=== PATIENT | female | born 1940 | race Caucasian/White ===

== ENCOUNTER 2020-08-07 10:08 | Inpatient (IN) | payer MEDICARE, SELFPAY ==
[2020-08-07] VITALS (9 sets, daily range): BP systolic 133–153; BP diastolic 66–83; PULSE 90–106; RESP 16–28; TEMP 36.4–36.6; O2SAT 69–100; BMI 25.3
--- NOTE | ~2020-08-07 | XR_ITS ---
EXAMINATION: XR abdomen/kub 1V DATE: 08/11/2020 08:24 INDICATION: Nausea and vomiting. Abdominal tenderness. TECHNIQUE: A supine view of the abdomen on 2 radiographs was obtained. COMPARISON: None. FINDINGS: There are no dilated loops of bowel. There is a small volume of stool in the colon. There i s a total left hip arthroplasty. Calcifications in the pelvis are likely phleboliths, but distal uret eral stone cannot be excluded. IMPRESSION: 1. Normal bowel gas pattern. Reviewed, dictated and finalized at location A.
--- NOTE | ~2020-08-07 | CT_ITS ---
EXAMINATION: CT abdomen pelvis w con DATE: 08/11/2020 12:43 INDICATION: Nausea and vomiting. TECHNIQUE: Computed tomography (CT) of the abdomen and pelvis was performed with 100 mL Omnipaque 350 intravenous contrast. Automated exposure control and iterative reconstruction technique were employe d. The dose-length product was 419.45 mGy-cm. COMPARISON: None. FINDINGS: The visualized portions of the lung bases demonstrate mild atelectasis and scarring. There is mild bronchiectasis bilaterally. A calcified left lung nodule is consistent with old granulomatous disease. No pleural effusion. There is left atrial enlargement of the heart. There are coronary nasir ry calcifications. No pericardial effusion. There are cysts in the liver measuring up to 6 mm. There are changes of cholecystectomy. The spleen, pancreas, and adrenal glands are normal. There is cortica l thinning of the kidneys. There are cysts in the kidneys measuring up to 8 mm on the right. There ar e no dilated loops of bowel. The appendix is not visualized. There is a small sliding hiatal hernia. There are no pathologically enlarged lymph nodes. There are small calcified fibroids in the uterus. T here is no free intraperitoneal fluid. There is a total left hip arthroplasty. There is severe thorac olumbar spondylosis. IMPRESSION: 1. Small sliding hiatal hernia. Reviewed, dictated and finalized at location A.
--- NOTE | ~2020-08-07 | XR_ITS ---
EXAMINATION: XR chest 1V portable DATE: 08/11/2020 08:24 INDICATION: Shortness of breath. Cough. TECHNIQUE: A single frontal view of the chest was obtained. COMPARISON: Chest 2 views 08/07/2020 FINDINGS: The chest demonstrates clear lungs without pneumonia, pleural effusion, or pneumothorax. Th e heart size is normal. IMPRESSION: 1. No acute cardiopulmonary disease. Reviewed, dictated and finalized at location A.
--- NOTE | ~2020-08-07 | XR_ITS ---
EXAMINATION: XR chest 2V DATE: 08/07/2020 11:18 INDICATION: Cough and shortness of breath. TECHNIQUE: Frontal and lateral views of the chest were obtained. COMPARISON: None. FINDINGS: There are small pleural effusions. There is a diffuse interstitial pattern, consistent with mild pulmonary edema. No pneumothorax. Cardiomegaly is noted. There are surgical clips in left axill a. IMPRESSION: 1. Mild pulmonary edema. 2. Small pleural effusions. 3. Cardiomegaly. Reviewed, dictated and finalized at location B.
--- NOTE | 2020-08-07 10:59 | ECG_ITS ---
Measurements Intervals [place] Rate: 96 P: 46 AL: 163 QRS: -28 QRSD: 109 T: 64 QT: 409 QTc: 519 Interpretive Statements SINUS RHYTHM VOLTAGE CRITERIA FOR LVH BORDERLINE R WAVE PROGRESSION, ANTERIOR LEADS BORDERLINE ST-T WAVE ABNORMALITY- INF/LAT LEADS BASELINE WANDER- II, III, V1 BORDERLINE ECG Electronically Signed On 08-07-2020 11:09:54 CDT by Fan Merritt D.O.
[2020-08-07 11:20] LABS: Basophils Percent Auto 0.4 % (0.2-1.2); Eosinophils Absolute Auto 0.1 K/mm3 (0-0.3); Eosinophils Percent Auto 1.2 % (0-4.4); Hemoglobin 12.2 g/dL (12.0-15.0); Immature Granulocyte Absolute 0.04 K/mm3 (0.00-0.031); Immature Granulocyte Percent A 0.4 % (0-0.5); Lymphocytes Absolute Auto 1.35 K/mm3 (0.9-3.2); Lymphocytes Percent Auto 13.5 % (18.3-44.2); Mean Corpuscular HGB Conc 32.1 g/dl (32-36); Mean Corpuscular Hemoglobin 30.3 pg (26-34); Mean Corpuscular Volume 94.3 fl (80-100); Mean Platelet Volume 9.2 fl (7.4-10.4); Monocytes Absolute Auto 0.6 K/mm3 (0.1-0.6); Monocytes Percent Auto 6.2 % (2.6-8.5); Neutrophils Absolute Auto 7.8 K/mm3 (1.3-6.7); Neutrophils Percent Auto 78.3 % (45.5-73.1); Platelet Count Result 326 k/mm3 (150-375); Red Blood Count 4.03 M/mm3 (4.2-5.4); Red Cell Distribution Width 13.7 % (11.5-14.5)
--- NOTE | 2020-08-07 11:23 | PC.NURSE ---
Report given to Jennifer POND
[2020-08-07 11:28] LABS: Anion Gap 7 mmol/L (8-16); Blood Urea Nitrogen 24 mg/dL (7-17); Calcium 9.2 mg/dL (8.4-10.2); Carbon Dioxide 29 mmol/L (22-30); Chloride 108 mmol/L (98-107); Estimated CRCL calculation 30 ml/min; Estimated Glomerular Filt Rate 43; Glucose 96 mg/dL (65-105); Sodium 144 mmol/L (137-145)
[2020-08-07] MEDS: IPRATROPIUM BR 0.02% INH SOLN 0.5 MG/2.5 ML VIAL INHALATION (12:04)
[2020-08-07] MEDS: ALBUTEROL SULFATE NEB 2.5 MG/0.5 ML INH 5 MG INHALATION (12:04)
[2020-08-07 12:26] LABS: NT Pro B Type Natriuretic Pept 6630 PG/ML (5-100); Troponin I 0.026 ng/mL (0.000-0.034)
--- NOTE | 2020-08-07 14:15 | ED.SOB ---
HPI - SOB/Dyspnea General Chief Complaint: Shortness of Breath/Dyspnea Stated Complaint: cough Time Seen by Provider: 08/07/20 11:20 Source: patient Mode of arrival: ambulatory Limitations: no limitations History of Present Illness HPI Narrative: 80-year-old female Mostly pretty healthy except that she has bad osteoarthritis in her right knee and is supposed to get replaced in a couple of weeks Today complains of increasing shortness of breath for about 3 weeks, saying that it feels like she has asthma, which she has no history of She is primarily symptomatic at night or when she lays down, less so during the day or with activity She does not report any chest pain or tightness She has not had a fever She initially had no cough at all, now she coughs a little bit but does not really produce any sputum Related Data Home Medications Medication Instructions Recorded Confirmed albuterol sulfate 90 mcg/actuation 1 inh INHALATION Q4-6H PRN 05/30/20 06/10/20 breath activated powder inhaler benzonatate 100 mg capsule 100 mg PO BID PRN 05/30/20 06/10/20 calcium carbonate-vit A and D tablet PO 05/30/20 06/10/20 tablet donepezil 5 mg tablet 5 mg PO ONCE 05/30/20 06/10/20 gemfibrozil 600 mg tablet 600 mg PO DAILY 05/30/20 06/10/20 levothyroxine 50 mcg capsule 50 mcg PO DAILY 05/30/20 06/10/20 meclizine 25 mg tablet 25 mg PO BID 05/30/20 06/10/20 pantoprazole 40 mg tablet,delayed 40 mg PO QAM 05/30/20 06/10/20 release paroxetine HCl 20 mg tablet 20 mg PO DAILY 05/30/20 06/10/20 vits no.126-ferrous fum tablet PO 05/30/20 28 mg iron-folic acid 800 mcg tablet Allergies Allergy/AdvReac Type Severity Reaction Status Date / Time levofloxacin Allergy Unknown Unknown Verified 05/30/20 12:11 Quinolones Allergy Unknown Unknown Verified 05/30/20 12:11 Review of Systems Review of Systems: All systems reviewed & are unremarkable except as noted in HPI and below Constitutional: Constitutional: Reports no additional constitutional complaints, Denies chills, Denies fever(s) and Denies headache(s) Eyes: Eyes: Reports no additional eye complaints and Denies change in vision ENT: Denies headache(s) and Denies sore throat Cardiovascular: Cardiovascular: Denies chest pain and Denies dyspnea Respiratory: Respiratory: Reports cough and Reports dyspnea Gastrointestinal: Gastrointestinal: Denies abdominal pain, Denies diarrhea and Denies vomiting Genitourinary: Genitourinary: Denies urinary frequency and Denies dysuria Musculoskeletal: Musculoskeletal: Denies deformity, Denies arthralgias, Denies joint swelling and Denies numbness Integumentary/Breasts: Skin/Breast: Denies rash and Denies wounds Neurologic: Denies headache(s), Denies focal weakness and Denies numbness Psychiatric: Psychiatric: Reports no additional psychiatric complaints Endocrine: Endocrine: Reports no additional endocrine complaints Hematologic/Lymphatic: Hematologic/Lymphatic: Reports no additional hematologic/lymphatic complaints Allergic/Immunologic: Allergic/Immunologic: Reports no additional allergic/immunologic complaints [facility] Past Medical History Medical History (Updated 08/07/20 @ 14:26 by Johnathon Delatorre MD) Carpal tunnel syndrome Hodgkin lymphoma Osteopenia Surgical History Surgical History (Updated 06/19/20 @ 12:50 by Izabella Hoffman CMA) Status post cholecystectomy Status post hip replacement Stem cells transplant status Family History Family History Grandparent Family history of malignant neoplasm of breast, Onset Age: 91 Mother Patient's mother is Social History Social History Smoking status: Never smoker Second hand tobacco smoke exposure: No Alcohol intake: never Exam Const: General: cooperative, no acute distress and alert Orientation/consc
--- NOTE | 2020-08-07 16:00 | PM.IMHP ---
H&P: HPI History of Present Illness Date/Time: 08/07/20 16:00 Chief Complaint: Shortness of breath. Narrative: This is a 72-year-old female with history of non-Hodgkin lymphoma over 20 years ago, hypothyroidism, and hypertriglyceridemia who presented to the emergency department earlier today via private vehicle from home for evaluation of shortness of breath. She suffers from short-term memory loss and is a fair historian however some of the following history is obtained from her who is at bedside, with the patient's permission. It sounds like over the last couple of years she has become progressively more debilitated due to ongoing right knee pain and right foot drop. In turn she has become more deconditioned and she does get short of breath with exertion. Over the last 3 weeks she has been increasingly more short of breath on lesser and lesser exertion and also reports the development of a dry cough, wheezing, and orthopnea. In the emergency department she was found to have findings concerning for possible underlying congestive heart failure with an elevated proBNP and cardiomegaly with mild pulmonary edema and small pleural effusions noted on chest x-ray. With further questioning she does mention having an episode recently of discomfort in the right lower sternum but she is vague regarding that has a difficult time describing the discomfort. It was self-limiting and has not returned. She does not recall having issues with exertional chest pain and has no known history of heart disease. She denies fever, chills, sweats, cold and flu symptoms, exposure to those positive for COVID-19, pleuritic pain, palpitations, racing heart, nausea, vomiting, and significant lower extremity edema. Review of Systems Review of Systems: Narrative: Twelve systems were reviewed with pertinent positives and negatives as per HPI. She is taking donepezil for memory loss but has never been diagnosed with dementia. She defers a lot of my questions to her . No history of asthma or COPD. She finished her vaccine series for COVID-19 sometime in June 2020. She denies dysphagia and concerns for aspiration. No nausea, vomiting, or diarrhea. No dysuria. She denies history of venous thromboembolism. Except as documented, all other systems were reviewed and are negative. [facility] Past Medical History Medical History (Updated 08/07/20 @ 22:16 by Anita Ballesteros PA-C) Anxiety Depression with anxiety Hypertriglyceridemia Hypothyroidism Memory loss Non-Hodgkin lymphoma Status post chemo radiation and stem cell transplant. Osteoarthritis Osteopenia Right foot drop Surgical History Surgical History (Updated 08/07/20 @ 22:12 by Anita Ballesteros PA-C) History of cataract extraction with lens replacement History of total left hip arthroplasty Status post cholecystectomy Stem cells transplant status Family History Family History (Updated 08/07/20 @ 22:12 by Anita Ballesteros PA-C) Grandparent Breast cancer Mother Breast cancer Father Acute myocardial infarction Sibling Cerebral aneurysm Social History Social History (Updated 08/07/20 @ 22:13 by Anita Ballesteros PA-C) Social History: Surrogate decision maker: Rigoberto Greenmaral, . Code status: Full code. Smoking status: Never smoker Second hand tobacco smoke exposure: No Alcohol intake: never Substance use: never Additional living arrangements comments: The patient lives with her on their [address] [place] outside in [place]. Additional occupation/education comments: Homemaker. Gender identity (if verbalized by the patient): Female Sexual Orientation (if Verbalized by the Patient): Straight or Heterosexual Spiritual care concerns: No Meds Home Medications and Allergies Home Medications Medication Instructions Recorded Confirmed Type albuterol sulfate 90 mcg/actuation 1 inh INHALATION Q4-6H PRN 05/30/
--- NOTE | 2020-08-07 16:13 | PC.NURSE ---
attempted to call report to RN. She is in another room at this time and will call me back.
--- NOTE | 2020-08-07 16:55 | ADMGEN ---
This patient, Gina Tellez, was admitted to [facility] Surg Room 329-01. Patient/family oriented to hospital policies and general routines including ID bracelet, bed and alarms, visiting hours, pain management, procedures, bathroom and other care routines, personal items, smoking policy, room service/diet, and visiting hours. Information on how to activate the Rapid Response Team has been discussed. Patient/Family are encouraged to report perceived risks to care and to ask questions if they do not understand what they are told or what they should do.
[2020-08-07] MEDS: LACTATED RINGERS 1,000 ML 30 ML IV CONT (18:10)
[2020-08-07] MEDS: FUROSEMIDE INJ 40 MG/4 ML VIAL IV PUSH ×2 (19:59→21:15)
[2020-08-08] VITALS (9 sets, daily range): BP systolic 123–141; BP diastolic 66–79; PULSE 87–102; RESP 20; TEMP 36.3–37.2; O2SAT 95–97
[2020-08-08] MEDS: LEVOTHYROXINE SODIUM 50 MCG TABLET PO (05:57)
--- NOTE | 2020-08-08 06:00 | ECHO_ITS ---
Patient Info Name: Gina Tellez Age: 80 years : 1940 Gender: Female Ht: 64 in Wt: 147 lbs BSA: 1.75 m2 HR: 99 bpm BP: 141 / 79 mmHg Heart Rhythm: Sinus Rhythm Technical Quality: Good Exam Date: 08/08/2020 2:01 PM Exam Location: [facility] Pulmonary Patient Status: Outpatient Admit Date: 08/07/2020 Staff Ordering Physician: Johnathon Delatorre MD Conveyor Belt Repairer: Ron Moraes RDCS, RT Attending Provider: Alix Isidro MD Referring Physician: Juan Ramon STRAUSS; Exam Type: CA echo dop color flow w con Study Info Indications I50.9 - Heart failure, unspecified Strain analysis performed. Complete two-dimensional, color flow and Doppler transthoracic echocardiogram is performed with contrast to opacify the left ventricle and to improve the deliniation of the left ventricle endocardial borders. Summary 1. Strain analysis performed. 2. Complete two-dimensional, color flow and Doppler transthoracic echocardiogram is performed with contrast to opacify the left ventricle and to improve the deliniation of the left ventricle endocardial borders. 3. Left ventricular chamber dimension is mildly enlarged. 4. Left ventricular systolic function is moderately reduced, estimated at 35-40%. 5. There is moderately increased left ventricular wall thickness. 6. The left ventricular diastolic function is grade III diastolic dysfunction. 7. Global longitudinal strain is abnormal at -6 %. 8. Global hypokinesis of the left ventricle. 9. Left atrial chamber dimension is mildly enlarged. 10. There is moderate mitral valve regurgitation. 11. There is mild tricuspid valve regurgitation. 12. There is mild pulmonic regurgitation. Left Ventricle Left ventricular chamber dimension is mildly enlarged. Left ventricular systolic function is moderately reduced, estimated at 35-40%. There is moderately increased left ventricular wall thickness. The left ventricular diastolic function is grade III diastolic dysfunction. Global longitudinal strain is abnormal at -6 %. Global hypokinesis of the left ventricle. Right Ventricle Right ventricular chamber dimension is normal. Right ventricular systolic function is normal. Left Atria Left atrial chamber dimension is mildly enlarged. Right Atria Right atrial chamber dimension is normal. Atrial Septum Intact interatrial septum visualized by color flow imaging. Aortic Valve The aortic valve is trileaflet. There is mild aortic valve sclerosis. There is no aortic valve stenosis. There is trace aortic valve regurgitation. Pulmonic Valve The pulmonic valve is normal. There is no pulmonic valve stenosis. There is mild pulmonic regurgitation. Mitral Valve The mitral valve has calcified annulus. There is no mitral valve stenosis. There is moderate mitral valve regurgitation. Tricuspid Valve The tricuspid valve leaflets are normal. There is no significant tricuspid valve stenosis. There is mild tricuspid valve regurgitation. Pericardium/Pleural The pericardium appears normal. There is no pericardial effusion. Inferior Vena Cava Dilated inferior vena cava with >50% collapse upon inspiration consistent with elevated right atrial pressure, 15 mmHg. Aorta The aortic root size at the sinus of Valsalva is normal. The prox ascending aorta size is normal. Left Ventricular Outflow Tract Name Value Normal
[2020-08-08 06:13] LABS: Hematocrit 36.8 % (37.0-47.0); Hemoglobin 11.6 g/dL (12.0-15.0); Mean Corpuscular HGB Conc 31.5 g/dl (32-36); Mean Corpuscular Hemoglobin 29.7 pg (26-34); Mean Corpuscular Volume 94.4 fl (80-100); Mean Platelet Volume 9.6 fl (7.4-10.4); Platelet Count Result 315 k/mm3 (150-375); Red Cell Distribution Width 13.7 % (11.5-14.5); White Blood Count 9.3 K/mm3 (4.5-10.0)
[2020-08-08 06:38] LABS: Alanine Aminotransferase 15 U/L (4-35); Albumin Level 4.2 g/dL (3.5-5.1); Alkaline Phosphatase 106 U/L (38-126); Anion Gap 7 mmol/L (8-16); Aspartate Amino Transferase 31 U/L (14-36); Bilirubin,Total 0.9 mg/dL (0.2-1.3); Blood Urea Nitrogen 23 mg/dL (7-17); Calcium 8.8 mg/dL (8.4-10.2); Carbon Dioxide 31 mmol/L (22-30); Chloride 105 mmol/L (98-107); Cholesterol 166 mg/dL (0-200); Estimated CRCL calculation 30 ml/min; Estimated Glomerular Filt Rate 43; Glucose 98 mg/dL (65-105); HDL Direct 31 mg/dL; Magnesium 1.3 mg/dL (1.6-2.3); Potassium 3.6 mmol/L (3.4-5.0); Sodium 143 mmol/L (137-145); Triglycerides 190 mg/dL (<150)
[2020-08-08 06:49] LABS: LDL Cholesterol Direct 93 mg/dL
[2020-08-08] MEDS: gemfibroziL 600 MG TABLET PO (08:31)
[2020-08-08] MEDS: PARoxetine 10 MG TABLET PO (08:31)
[2020-08-08] MEDS: MULTIVIT/MIN/PREN/FOL AC/IRON TABLET 1 TAB PO (08:31)
[2020-08-08] MEDS: ENOXAPARIN 40 MG/0.4 ML SYRINGE SUB-Q (08:32)
[2020-08-08] MEDS: POTASSIUM CHLORIDE 20 MEQ TABLET.ER PO (08:32)
[2020-08-08] MEDS: FUROSEMIDE INJ 40 MG/4 ML VIAL IV PUSH (08:32)
[2020-08-08] MEDS: PANTOPRAZOLE 40 MG TABLET PO (08:33)
[2020-08-08 10:53] LABS: Free T4 Free Thyroxine Reflex 1.06 ng/dL (0.78-2.19)
[2020-08-08 12:02] LABS: Total Triiodothyronine (T3) 0.85 NG/ML (0.97-1.69)
--- NOTE | 2020-08-08 14:04 | PM.CNCAR ---
Assessment and Plan Assessment and plan (1) Congestive heart failure: Code(s): I50.9 - Heart failure, unspecified Status: Acute Assessment and Plan: Uncertain etiology to this point. Probably diastolic in worsened by underlying reactive airways. She is wheezy on examination. Continue IV diuretics for another 24 hours and then transition to oral diuretics within 48 hours. 2D echocardiogram is ordered and will be reviewed. Will hold off on beta-raulito at this point given or wheeziness until after results of the echocardiogram are back. Initiate SARIKA-inhibitor/ARB when renal function stabilizes. Continue follow BmP especially since she is receiving diuretics. Further workup and recommendation pending above workup (2) Cardiomegaly: Code(s): I51.7 - Cardiomegaly Status: Acute (3) Pulmonary edema: Code(s): J81.1 - Chronic pulmonary edema Status: Acute Assessment and Plan: Continue diuretics (4) Hypothyroidism: Code(s): E03.9 - Hypothyroidism, unspecified Status: Acute Assessment and Plan: To see the with thyroxine should they increased (5) Electrolyte abnormality: Code(s): E87.8 - Other disorders of electrolyte and fluid balance, not elsewhere classified Status: Acute Assessment and Plan: We will replace with 40 mEq of p.o. potassium as well as 4 g of IV and magnesium x1 History of Present Illness History of Present Illness Consult date/time: 08/08/20 14:04 Requesting physician: Anita Ballesteros PA-C Consult reason: congestive heart failure Reason For Visit: CHF Narrative: Date of service 08/08/2020: Patient is a 80-year-old female who does not have known cardiac history. She does have a history of not have symptom foam and did receive chemo and radiation about 20 years ago. She does also have hypothyroidism hypertriglyceridemia and what sounds to be a history of reactive airways disease. She has some forgetfulness. She is on Aricept. She is coming to the hospital because of worsening shortness of breath. Patient states over the past 3 weeks she has had significant amounts of wheeziness especially when laying flat at night. She has been having difficulty sleeping and waking up frequently to urinate as well as for breathing purposes. She denies any chest pain. She does have some mild swelling right lower extremity which is not unusual for her. She has been having worsening dyspnea on exertion by doing simple activities such as walking to and from the bathroom. She denies any palpitations, syncope or presyncope. Because her symptoms are not improving she came to the hospital for further workup and evaluation. BNP was noted to be 6600 and chest x-ray showed edema. She was started on IV diuretics and cardiology consultation was requested because of the shortness of breath and elevated BNP and chest x-ray findings. She is feeling a little bit better today. Review of Systems Review of Systems: All systems reviewed & are unremarkable except as noted in HPI and below Constitutional: Constitutional: Reports weakness Eyes: Eyes: Denies blurry vision ENT: Reports Normal hearing present Cardiovascular: Cardiovascular: Reports chest pain Respiratory: Respiratory: Reports dyspnea and Reports dyspnea on exertion Gastrointestinal: Gastrointestinal: Denies abdominal pain Genitourinary: Genitourinary: Denies hematuria and Denies flank pain Musculoskeletal: Musculoskeletal: Denies back pain and Denies neck pain Integumentary/Breasts: Skin/Breast: Denies dry skin and Denies unusual bruising Neurologic: Denies headache(s) and Denies numbness Psychiatric: Psychiatric: Denies anxiety and Denies confusion Endocrine: Endocrine: Denies fatigue Hematologic/Lymphatic: Hematologic/Lymphatic: Denies easy bleeding and Denies easy bruising Allergic/Immunologic: Allergic/Immunologic: Denies GI upset with certain foods and Denies lip swelling
[2020-08-08] MEDS: PERFLUTREN LIPID MICROSPHERES 1.5 ML VIAL DILUTED TO 10 ML TOTAL VOLUME IV PUSH (14:45)
[2020-08-08] MEDS: MAGNESIUM SULF 4 GM/WATER100ML 4 GM/100 ML BAG IVPB (14:56)
[2020-08-08] MEDS: POTASSIUM CHLORIDE 20 MEQ TABLET PO (14:56)
[2020-08-08] MEDS: DONEPEZIL HCL 5 MG TABLET PO (14:56)
--- NOTE | 2020-08-08 14:58 | PM.IMPN ---
Progress Note: A&P Assessment and Plan (1) Cardiomegaly: Code(s): I51.7 - Cardiomegaly Status: Acute Assessment and Plan: Pt treated for congestive heart failure including cardiomegaly, small pleural effusions, and pulmonary edema. Doing better seen by cardiology. (2) Pulmonary edema: Code(s): J81.1 - Chronic pulmonary edema Status: Acute Assessment and Plan: Patient is symptomatic with pulmonary edema, continue to diuresis (3) Elevated serum creatinine: Code(s): R79.89 - Other specified abnormal findings of blood chemistry Status: Acute Assessment and Plan: Creat is 1.2 continue to watch (4) Hypothyroidism: Code(s): E03.9 - Hypothyroidism, unspecified Status: Inactive Assessment and Plan: Continue levothyroxine (5) Hypertriglyceridemia: Code(s): E78.1 - Pure hyperglyceridemia Status: Inactive Assessment and Plan: Continue gemfibrozil. = (6) Memory loss: Code(s): R41.3 - Other amnesia Status: Inactive Assessment and Plan: Patient suffers from short-term memory loss. Continue donepezil. Subjective Date/time seen: 08/08/20 14:58 Interval history: 72-year-old female with history of non-Hodgkin lymphoma over 20 years ago, hypothyroidism, and hypertriglyceridemia who presented to the emergency department earlier today via private vehicle from home for evaluation of shortness of breath. Pt treated for CHF exacerbation see cardiology recommendations. Review of Systems Review of Systems: All systems reviewed & are unremarkable except as noted in HPI and below Exam Const: General: cooperative and healthy appearing; No in distress Nutritional Appearance: overweight Orientation/consciousness: oriented to person HENMT: Head: normal to inspection Resp: Effort & Inspection: no respiratory distress Auscultation: rhonchi and wheezes Cardio: Rate: regular rate Rhythm: regular rhythm GI: Inspection: normal to inspection GI Palp: No abdominal tenderness, No Guarding due to palpation present (GI) and No Hepatomegaly present Auscultation: normal bowel sounds Neuro: General: oriented to person Objective Data Vital Signs Vital Signs: Vital Signs - 24 hr 08/07/20 15:00 08/07/20 15:56 08/07/20 17:20 Temperature 36.4 C L Pulse Rate 91 106 H 104 H Respiratory Rate 22 H 28 H 18 Blood Pressure 133/66 135/79 141/67 H Pulse Oximetry 94 100 93 08/07/20 20:00 08/07/20 22:00 08/08/20 00:00 Temperature 36.6 C Pulse Rate 90 99 92 Respiratory Rate 20 Blood Pressure 138/83 Pulse Oximetry 69 L 08/08/20 04:00 08/08/20 06:00 08/08/20 08:00 Temperature 36.4 C L Pulse Rate 92 95 91 Respiratory Rate 20 Blood Pressure 141/79 H Pulse Oximetry 97 08/08/20 12:00 08/08/20 14:00 Temperature 36.3 C L Pulse Rate 102 H 95 Respiratory Rate 20 Blood Pressure 131/66 Pulse Oximetry 95 Intake/Output Intake/Output: Intake & Output 08/05/20 08/06/20 08/07/20 08/08/20 23:59 23:59 23:59 23:59 Intake Total 240 780 Output Total 2200 Balance 240 -1420 Meds/Results Medications: Active Medications Generic Name Dose Route Start Last Admin Trade Name Bettina PRN Reason Stop Dose Admin Acetaminophen 650 mg 08/07/20 14:26 Acetaminophen 325 Mg Tablet PO Q4H PRN Mild Pain (1-3) or Fever Donepezil HCl 5 mg 08/08/20 12:55 08/08/20 14:56 Donepezil Hcl 5 Mg Tablet PO 5 mg DAILY FAVIOLA Administration Enoxaparin Sodium 40 mg 08/08/20 09:00 08/08/20 08:32 Enoxaparin 40 Mg/0.4 Ml Syringe SUB-Q 40 mg DAILY FAVIOLA Administration Furosemide 40 mg 08/07/20 21:00 08/08/20 08:32 Furosemide Inj 40 Mg/4 Ml Vial IV PUSH 40 mg Q12HR FAVIOLA Administration Gemfibrozil 600 mg 08/08/20 08:00 08/08/20 08:31 Gemfibrozil 600 Mg Tablet PO 600 mg DAILY@0800 FAVIOLA Administration Magnesium Sulfate 4 gm in 100 mls @ 100
[2020-08-09] VITALS (14 sets, daily range): BP systolic 103–140; BP diastolic 59–66; PULSE 74–89; RESP 14–20; TEMP 36.4–36.6; O2SAT 93–100
--- NOTE | 2020-08-09 04:42 | PCDIET ---
0315: Notified Dr. Len Clemente d/t patient's persistent and productive coughing. Expectorant clear, white and thick. Lungs coarse throughout. Candle Molder requested either a cough suppressant and/or some [place] cough drops. MD responded I'll take care of it. Repositioned patient in bed to high fowlers to improve breathing. O2 sats 99%. Resting well at this time.
--- NOTE | 2020-08-09 05:15 | PC.NURSE ---
0315: Notifed Dr. Len Clemente regarding persistent and productive coughing and visibly in distress. Expectorant is clear, thick and white and lung martinez are coarse throughout. Inking Machine Tender requested either a cough suppressant and/or [place] cough drops. MD responded I'll take care of it . Repositioned patient to high solomon for improved breathing. O2 sats at 99% at this time and patient resting well. Will continue to monitor.
[2020-08-09] MEDS: guaiFENesin/DEXTROMETHORPHAN 10 ML UDC 5 ML PO ×2 (05:52→11:06)
[2020-08-09] MEDS: LEVOTHYROXINE SODIUM 50 MCG TABLET PO (05:53)
[2020-08-09] MEDS: FUROSEMIDE INJ 40 MG/4 ML VIAL IV PUSH ×2 (08:36→20:40)
[2020-08-09] MEDS: BENZONATATE 100 MG CAPSULE PO ×3 (08:57→17:51)
[2020-08-09] MEDS: ENOXAPARIN 40 MG/0.4 ML SYRINGE SUB-Q (11:04)
[2020-08-09] MEDS: gemfibroziL 600 MG TABLET PO (11:05)
[2020-08-09] MEDS: POTASSIUM CHLORIDE 20 MEQ TABLET.ER PO (11:05)
[2020-08-09] MEDS: PARoxetine 10 MG TABLET PO (11:05)
[2020-08-09] MEDS: PANTOPRAZOLE 40 MG TABLET PO (11:05)
[2020-08-09] MEDS: MULTIVIT/MIN/PREN/FOL AC/IRON TABLET 1 TAB PO (11:05)
[2020-08-09] MEDS: DONEPEZIL HCL 5 MG TABLET PO (11:05)
[2020-08-09 11:22] LABS: Anion Gap 10 mmol/L (8-16); Blood Urea Nitrogen 30 mg/dL (7-17); Calcium 9.8 mg/dL (8.4-10.2); Carbon Dioxide 32 mmol/L (22-30); Chloride 99 mmol/L (98-107); Estimated CRCL calculation 31 ml/min; Estimated Glomerular Filt Rate 40; Glucose 115 mg/dL (65-105); Potassium 3.8 mmol/L (3.4-5.0); Sodium 141 mmol/L (137-145)
--- NOTE | 2020-08-09 11:51 | PM.PNCARD ---
Progress Note: A&P Assessment and Plan (1) Congestive heart failure: Code(s): I50.9 - Heart failure, unspecified Status: Acute Assessment and Plan: Systolic in etiology. EF 35-40%. Will start Entresto 12/13 mg p.o. b.i.d.. Also will start low-dose metoprolol succinate 12.5 mg p.o. daily. Up titrate these medications as tolerated and needed. Eventual ischemic evaluation is needed either with coronary angiogram or stress testing. Preferably coronary angiogram but will wait until she is able to lay flat or better compensated. This could be delayed and performed as an outpatient. (2) Cardiomegaly: Code(s): I51.7 - Cardiomegaly Status: Acute (3) Pulmonary edema: Code(s): J81.1 - Chronic pulmonary edema Status: Acute Assessment and Plan: Continue diuretics (4) Hypothyroidism: Code(s): E03.9 - Hypothyroidism, unspecified Status: Acute Assessment and Plan: To see the with thyroxine should they increased (5) Electrolyte abnormality: Code(s): E87.8 - Other disorders of electrolyte and fluid balance, not elsewhere classified Status: Acute Assessment and Plan: Will repeat a basic metabolic panel and magnesium level today She also has significant wheeziness. I do think that she needs some treatment for her reactive airways. Will defer to hospitalist Subjective Date/time seen: 08/09/20 11:51 Interval history: 72-year-old female with history of non-Hodgkin lymphoma over 20 years ago, hypothyroidism, and hypertriglyceridemia who presented to the emergency department earlier today via private vehicle from home for evaluation of shortness of breath. Date of service 08/09/2020: Still a significant cough and shortness of breath with lying flat. No chest pain. Review of Systems Review of Systems: All systems reviewed & are unremarkable except as noted in HPI and below Constitutional: Constitutional: Denies fatigue, Denies headache(s) and Reports weakness Eyes: Eyes: Denies blurry vision ENT: Reports Normal hearing present, Denies headache(s), Denies lip swelling and Denies neck pain Cardiovascular: Cardiovascular: Reports chest pain, Reports dyspnea and Reports dyspnea on exertion Respiratory: Respiratory: Reports dyspnea and Reports dyspnea on exertion Gastrointestinal: Gastrointestinal: Denies abdominal pain Genitourinary: Genitourinary: Denies hematuria and Denies flank pain Musculoskeletal: Musculoskeletal: Denies back pain, Denies neck pain and Denies numbness Integumentary/Breasts: Skin/Breast: Denies dry skin and Denies unusual bruising Neurologic: Reports Normal hearing present, Denies confusion, Denies headache(s), Denies numbness and Reports weakness Psychiatric: Psychiatric: Denies anxiety and Denies confusion Endocrine: Endocrine: Denies fatigue Hematologic/Lymphatic: Hematologic/Lymphatic: Denies easy bleeding and Denies easy bruising Allergic/Immunologic: Allergic/Immunologic: Denies GI upset with certain foods and Denies lip swelling Exam Narrative: Exam Narrative: Awake alert oriented appears to be in no acute distress and at stated age Const: General: comfortable and no acute distress; No confusion Orientation/consciousness: No confusion HENMT: General nose exam: Normal nares present Eyes: Sclera: sclerae normal Neck: Neck: supple and no JVD Chest: Other: No reproducible chest wall pain to palpation Resp: Auscultation: wheezes Cardio: Rate: regular rate Rhythm: regular rhythm Heart sounds: no murmurs GI: Inspection: normal to inspection Skin: General skin exam: normal color and no erythema Neuro: General: No confusion Cranial nerves: Yes Normal hearing present Cognition (Neuro): normal cognition Speech: normal speech Extrem: General: normal to inspection and no edema Psych: Mental Status: mental status grossly normal Objective Data Vital Signs Vital Signs: Vital Signs - 24 hr
[2020-08-09 12:07] LABS: Magnesium 1.9 mg/dL (1.6-2.3)
[2020-08-09] MEDS: LEVALBUTEROL NEB 1.25 MG/3 ML 0.63 MG INHALATION ×2 (13:14→22:08)
[2020-08-09] MEDS: METOPROLOL SUCCINATE EXT REL 12.5 MG TABCR PO (13:51)
--- NOTE | 2020-08-09 14:11 | PM.IMPN ---
Progress Note: A&P Assessment and Plan (1) Cardiomegaly: Code(s): I51.7 - Cardiomegaly Status: Acute Assessment and Plan: Pt treated for congestive heart failure including cardiomegaly, small pleural effusions, and pulmonary edema. Ongoing pulmonary edema continue to diuresis. Rpt cxr on wednesday morning. Hopeful Dc on wednesday with heart cath as a outpatient. (2) Pulmonary edema: Code(s): J81.1 - Chronic pulmonary edema Status: Acute Assessment and Plan: Patient is symptomatic with pulmonary edema, continue to diuresis pt having wet cough (3) Elevated serum creatinine: Code(s): R79.89 - Other specified abnormal findings of blood chemistry Status: Acute Assessment and Plan: Creat is 1.3 continue to watch (4) Hypothyroidism: Code(s): E03.9 - Hypothyroidism, unspecified Status: Inactive Assessment and Plan: Continue levothyroxine (5) Hypertriglyceridemia: Code(s): E78.1 - Pure hyperglyceridemia Status: Inactive Assessment and Plan: Continue gemfibrozil. (6) Memory loss: Code(s): R41.3 - Other amnesia Status: Inactive Assessment and Plan: Patient suffers from short-term memory loss. Continue donepezil. (7) Bronchitis: Code(s): J40 - Bronchitis, not specified as acute or chronic Status: Acute Assessment and Plan: Pt to continue on breathing treatments while in the hospital. Subjective Date/time seen: 08/09/20 14:11 Interval history: 72-year-old female with history of non-Hodgkin lymphoma over 20 years ago, hypothyroidism, and hypertriglyceridemia who presented to the emergency department earlier today via private vehicle from home for evaluation of shortness of breath. Pt treated for CHF exacerbation. Pt was up coughing all night. Echo shows EF of 35%, heart cath recommended later. Continue to diuresis patient. Review of Systems Review of Systems: All systems reviewed & are unremarkable except as noted in HPI and below Exam Const: General: anxious and other (coughing ) Nutritional Appearance: overweight Orientation/consciousness: oriented to person HENMT: Head: normal to inspection Resp: Effort & Inspection: no respiratory distress Auscultation: rhonchi and other (BL crackles and rhonchi to upper zones of lungs ) Cardio: Rate: regular rate Rhythm: regular rhythm GI: Inspection: normal to inspection Auscultation: normal bowel sounds Neuro: General: oriented to person Objective Data Vital Signs Vital Signs: Vital Signs - 24 hr 08/08/20 16:00 08/08/20 20:00 08/08/20 21:39 Temperature 37.2 C Pulse Rate 87 92 92 Respiratory Rate 20 Blood Pressure 123/78 Pulse Oximetry 97 08/09/20 00:00 08/09/20 04:00 08/09/20 06:00 Temperature 36.6 C Pulse Rate 84 88 89 Respiratory Rate 20 Blood Pressure 103/61 Pulse Oximetry 99 08/09/20 08:00 08/09/20 12:00 08/09/20 13:15 Temperature Pulse Rate 80 76 87 Respiratory Rate 14 Blood Pressure Pulse Oximetry 08/09/20 13:21 08/09/20 13:51 Temperature Pulse Rate 87 84 Respiratory Rate 14 Blood Pressure Pulse Oximetry Intake/Output Intake/Output: Intake & Output 08/06/20 08/07/20 08/08/20 08/09/20 23:59 23:59 23:59 23:59 Intake Total 240 1570 300 Output Total 3000 1300 Balance 240 -1430 -1000 Meds/Results Medications: Active Medications Generic Name Dose Route Start Last Admin Trade Name Freq PRN Reason Stop Dose Admin Acetaminophen 650 mg 08/07/20 14:26 Acetaminophen 325 Mg Tablet PO Q4H PRN Mild Pain (1-3) or Fever Benzonatate 100 mg 08/09/20 09:00 08/09/20 12:51 Benzonatate 100 Mg Capsule PO 100 mg TID FAVIOLA Administration Donepezil HCl 5 mg 08/08/20 12:55 08/09/20 11:05 Donepezil Hcl 5 Mg Tablet PO 5 mg DAILY FAVIOLA Administration Enoxaparin Sodium 40 mg 08/08/20 09:00 08/09/20 11:04 En
[2020-08-09] MEDS: ONDANSETRON HCL ODT 4 MG TABLET PO (18:53)
[2020-08-10] VITALS (15 sets, daily range): BP systolic 103–114; BP diastolic 58–92; PULSE 67–84; RESP 16–20; TEMP 36–36.9; O2SAT 92–97
[2020-08-10] MEDS: SACUBITRIL/VALSARTAN 12-13 MG TABLET 1 TAB PO ×3 (01:42→20:37)
[2020-08-10] MEDS: LEVALBUTEROL NEB 1.25 MG/3 ML 0.63 MG INHALATION ×2 (02:58→08:44)
[2020-08-10 06:17] LABS: Anion Gap 9 mmol/L (8-16); Blood Urea Nitrogen 35 mg/dL (7-17); Calcium 9.4 mg/dL (8.4-10.2); Carbon Dioxide 33 mmol/L (22-30); Chloride 99 mmol/L (98-107); Estimated CRCL calculation 29 ml/min; Estimated Glomerular Filt Rate 36; Glucose 107 mg/dL (65-105); Potassium 3.8 mmol/L (3.4-5.0); Sodium 141 mmol/L (137-145)
[2020-08-10] MEDS: LEVOTHYROXINE SODIUM 50 MCG TABLET PO (06:18)
[2020-08-10] MEDS: ENOXAPARIN 40 MG/0.4 ML SYRINGE SUB-Q (08:50)
[2020-08-10] MEDS: FUROSEMIDE INJ 40 MG/4 ML VIAL IV PUSH (09:33)
[2020-08-10] MEDS: ONDANSETRON HCL ODT 4 MG TABLET PO (10:53)
--- NOTE | 2020-08-10 11:57 | PM.PNCARD ---
Progress Note: A&P Assessment and Plan (1) Congestive heart failure: Code(s): I50.9 - Heart failure, unspecified Status: Acute Assessment and Plan: Systolic in etiology. EF 35-40%. continue Entresto and metoprolol. Up titrate these medications as tolerated and needed. Eventual ischemic evaluation is needed either with coronary angiogram or stress testing. Preferably coronary angiogram but will wait until she is able to lay flat or better compensated. This could be delayed and performed as an outpatient. (2) Cardiomegaly: Code(s): I51.7 - Cardiomegaly Status: Acute (3) Pulmonary edema: Code(s): J81.1 - Chronic pulmonary edema Status: Acute Assessment and Plan: will reduce her furosemide. Will DC IV furosemide and start her on 40 mg p.o. daily (4) Hypothyroidism: Code(s): E03.9 - Hypothyroidism, unspecified Status: Acute Assessment and Plan: on replacement (5) Electrolyte abnormality: Code(s): E87.8 - Other disorders of electrolyte and fluid balance, not elsewhere classified Status: Acute Assessment and Plan: Improved She also has significant wheeziness. I do think that she needs some treatment for her reactive airways. Will defer to hospitalist Subjective Date/time seen: 08/10/20 11:57 Interval history: 72-year-old female with history of non-Hodgkin lymphoma over 20 years ago, hypothyroidism, and hypertriglyceridemia who presented to the emergency department earlier today via private vehicle from home for evaluation of shortness of breath. Date of service 08/10/2020: She slept much better and is breathing better. She is a bit nauseated, she had dry heaves yesterday and did throw up for breakfast though. No chest pain Review of Systems Review of Systems: All systems reviewed & are unremarkable except as noted in HPI and below Constitutional: Constitutional: Denies fatigue, Denies headache(s) and Reports weakness Eyes: Eyes: Denies blurry vision ENT: Reports Normal hearing present, Denies headache(s), Denies lip swelling and Denies neck pain Cardiovascular: Cardiovascular: Reports chest pain, Reports dyspnea and Reports dyspnea on exertion Respiratory: Respiratory: Reports dyspnea and Reports dyspnea on exertion Gastrointestinal: Gastrointestinal: Denies abdominal pain, Reports nausea and Reports vomiting Genitourinary: Genitourinary: Denies hematuria and Denies flank pain Musculoskeletal: Musculoskeletal: Denies back pain, Denies neck pain and Denies numbness Integumentary/Breasts: Skin/Breast: Denies dry skin and Denies unusual bruising Neurologic: Reports Normal hearing present, Denies confusion, Denies headache(s), Denies numbness and Reports weakness Psychiatric: Psychiatric: Denies anxiety and Denies confusion Endocrine: Endocrine: Denies fatigue Hematologic/Lymphatic: Hematologic/Lymphatic: Denies easy bleeding and Denies easy bruising Allergic/Immunologic: Allergic/Immunologic: Denies GI upset with certain foods and Denies lip swelling Exam Narrative: Exam Narrative: Awake alert oriented appears to be in no acute distress and at stated age Const: General: comfortable and no acute distress; No confusion Orientation/consciousness: No confusion HENMT: General nose exam: Normal nares present Eyes: Sclera: sclerae normal Neck: Neck: supple and no JVD Chest: Other: No reproducible chest wall pain to palpation Resp: Auscultation: wheezes Cardio: Rate: regular rate Rhythm: regular rhythm Heart sounds: no murmurs GI: Inspection: normal to inspection Skin: General skin exam: normal color and no erythema Neuro: General: No confusion Cranial nerves: Yes Normal hearing present Cognition (Neuro): normal cognition Speech: normal speech Extrem: General: normal to inspection and no edema Psych: Mental Status: mental status grossly normal Objective Data Vital Signs Vital Signs:
[2020-08-10] MEDS: METOPROLOL SUCCINATE EXT REL 12.5 MG TABCR PO (12:47)
[2020-08-10] MEDS: PARoxetine 10 MG TABLET PO (13:29)
[2020-08-10] MEDS: PANTOPRAZOLE 40 MG TABLET PO (13:30)
[2020-08-10] MEDS: DONEPEZIL HCL 5 MG TABLET PO (13:30)
[2020-08-10] MEDS: BENZONATATE 100 MG CAPSULE PO ×3 (13:43→20:37)
--- NOTE | 2020-08-10 13:50 | PM.IMPN ---
Progress Note: A&P Assessment and Plan (1) Cardiomegaly: Code(s): I51.7 - Cardiomegaly Status: Acute Assessment and Plan: Pt treated for congestive heart failure including cardiomegaly, small pleural effusions, and pulmonary edema. Ongoing pulmonary edema continue to diuresis. Transition to oral lasix Dc iv lasix (2) Pulmonary edema: Code(s): J81.1 - Chronic pulmonary edema Status: Acute Assessment and Plan: Patient is symptomatic with pulmonary edema resolving, Rpt cxr thompson am (3) Elevated serum creatinine: Code(s): R79.89 - Other specified abnormal findings of blood chemistry Status: Acute Assessment and Plan: Creat is 1.4 continue to watch (4) Hypothyroidism: Code(s): E03.9 - Hypothyroidism, unspecified Status: Inactive Assessment and Plan: Continue levothyroxine (5) Hypertriglyceridemia: Code(s): E78.1 - Pure hyperglyceridemia Status: Inactive Assessment and Plan: Continue gemfibrozil. (6) Memory loss: Code(s): R41.3 - Other amnesia Status: Inactive Assessment and Plan: Patient suffers from short-term memory loss. Continue donepezil. (7) Bronchitis: Code(s): J40 - Bronchitis, not specified as acute or chronic Status: Acute Assessment and Plan: Pt to continue on breathing treatments while in the hospital. Subjective Date/time seen: 08/10/20 13:50 Interval history: 72-year-old female with history of non-Hodgkin lymphoma over 20 years ago, hypothyroidism, and hypertriglyceridemia who presented to the emergency department earlier today via private vehicle from home for evaluation of shortness of breath. Pt treated for CHF exacerbation. Echo shows EF of 35%, heart cath recommended later. Pt having dry heaving this morning vomited her breakfast, ? secondary to IV lasix Review of Systems Review of Systems: All systems reviewed & are unremarkable except as noted in HPI and below Exam Const: General: anxious Nutritional Appearance: overweight Orientation/consciousness: oriented to person HENMT: Head: normal to inspection Resp: Effort & Inspection: no respiratory distress Auscultation: other (few crackles at bases) Cardio: Rate: regular rate Rhythm: regular rhythm GI: Inspection: normal to inspection Auscultation: normal bowel sounds Neuro: General: oriented to person Objective Data Vital Signs Vital Signs: Vital Signs - 24 hr 08/09/20 13:51 08/09/20 14:00 08/09/20 16:00 Temperature 36.4 C L Pulse Rate 84 83 78 Respiratory Rate 16 Blood Pressure 140/59 L Pulse Oximetry 100 08/09/20 20:00 08/09/20 21:38 08/09/20 22:08 Temperature 36.4 C L Pulse Rate 77 74 86 Respiratory Rate 18 16 Blood Pressure 121/66 Pulse Oximetry 93 08/09/20 22:18 08/10/20 00:00 08/10/20 02:58 Temperature Pulse Rate 87 72 73 Respiratory Rate 16 16 Blood Pressure Pulse Oximetry 08/10/20 03:06 08/10/20 04:00 08/10/20 06:00 Temperature 36.0 C L Pulse Rate 70 68 70 Respiratory Rate 16 18 Blood Pressure 104/58 L Pulse Oximetry 92 08/10/20 08:45 08/10/20 08:47 08/10/20 08:54 Temperature Pulse Rate 71 70 Respiratory Rate 20 20 Blood Pressure Pulse Oximetry 96 08/10/20 12:47 Temperature Pulse Rate 75 Respiratory Rate Blood Pressure Pulse Oximetry Intake/Output Intake/Output: Intake & Output 08/07/20 08/08/20 08/09/20 08/10/20 23:59 23:59 23:59 23:59 Intake Total 240 1570 1350 1230 Output Total 3000 2550 450 Balance 240 -1430 -1200 780 Meds/Results Medications: Active Medications Generic Name Dose Route Start Last Admin Trade Name Freq PRN Reason Stop Dose Admin Acetaminophen 650 mg 08/07/20 14:26 Acetaminophen 325 Mg Tablet PO Q4H PRN Mild Pain (1-3) or Fever Benzonatate 100 mg 08/09/20 09:00 08/10/20 13:43 Benzonatate 100 Mg Capsule PO
[2020-08-10] MEDS: POTASSIUM CHLORIDE 20 MEQ TABLET.ER PO (17:18)
[2020-08-11] VITALS (11 sets, daily range): BP systolic 114–122; BP diastolic 43–60; PULSE 71–88; RESP 16–18; TEMP 36.8–37.2; O2SAT 92–98
[2020-08-11] MEDS: guaiFENesin/DEXTROMETHORPHAN 10 ML UDC 5 ML PO ×3 (00:31→13:01)
[2020-08-11] MEDS: LEVOTHYROXINE SODIUM 50 MCG TABLET PO (06:10)
[2020-08-11] MEDS: ONDANSETRON HCL ODT 4 MG TABLET PO (07:59)
[2020-08-11] MEDS: MECLIZINE HCL 25 MG TABLET PO (07:59)
[2020-08-11] MEDS: BENZONATATE 100 MG CAPSULE PO ×3 (08:00→17:17)
[2020-08-11 08:05] LABS: Anion Gap 11 mmol/L (8-16); Blood Urea Nitrogen 37 mg/dL (7-17); Calcium 9.4 mg/dL (8.4-10.2); Carbon Dioxide 30 mmol/L (22-30); Chloride 97 mmol/L (98-107); Estimated CRCL calculation 31 ml/min; Estimated Glomerular Filt Rate 40; Glucose 101 mg/dL (65-105); Potassium 3.4 mmol/L (3.4-5.0); Sodium 138 mmol/L (137-145)
[2020-08-11] MEDS: METOPROLOL SUCCINATE EXT REL 12.5 MG TABCR PO (09:08)
[2020-08-11] MEDS: SACUBITRIL/VALSARTAN 12-13 MG TABLET 1 TAB PO ×2 (09:09→20:24)
[2020-08-11] MEDS: ENOXAPARIN 40 MG/0.4 ML SYRINGE SUB-Q (09:28)
[2020-08-11] MEDS: POTASSIUM CHLORIDE 20 MEQ TABLET.ER PO (09:29)
[2020-08-11] MEDS: gemfibroziL 600 MG TABLET PO (09:30)
--- NOTE | 2020-08-11 09:37 | ECG_ITS ---
Measurements Intervals [place] Rate: 78 P: 42 NE: 154 QRS: -34 QRSD: 112 T: 97 QT: 410 QTc: 467 Interpretive Statements SINUS RHYTHM LEFT AXIS DEVIATION INTRAVENTRICULAR CONDUCTION DELAY LEFT VENTRICULAR HYPERTROPHY AND ST-T CHANGE BORDERLINE R WAVE PROGRESSION, ANTERIOR LEADS BORDERLINE T WAVE ABNORMALITY- ANTERIOR LEADS BORDERLINE ECG Electronically Signed On 08-11-2020 12:24:27 CDT by Fan Merritt D.O.
--- NOTE | 2020-08-11 09:37 | PM.PNCARD ---
Progress Note: A&P Assessment and Plan (1) Congestive heart failure: Code(s): I50.9 - Heart failure, unspecified Status: Acute Assessment and Plan: Systolic in etiology. EF 35-40%. continue Entresto and metoprolol. Up titrate these medications as tolerated and needed. Eventual ischemic evaluation is needed either with coronary angiogram or stress testing. Preferably coronary angiogram but will wait until she is able to lay flat or better compensated. This could be delayed and performed as an outpatient. (2) Cardiomegaly: Code(s): I51.7 - Cardiomegaly Status: Acute (3) Pulmonary edema: Code(s): J81.1 - Chronic pulmonary edema Status: Acute Assessment and Plan: Continue oral furosemide. Lungs are clear today by CXR (4) Hypothyroidism: Code(s): E03.9 - Hypothyroidism, unspecified Status: Acute Assessment and Plan: on replacement (5) Electrolyte abnormality: Code(s): E87.8 - Other disorders of electrolyte and fluid balance, not elsewhere classified Status: Acute Assessment and Plan: 40 mg p.o. potassium x1. (6) Nausea & vomiting: Code(s): R11.2 - Nausea with vomiting, unspecified Status: Acute Assessment and Plan: Zofran given. Workup per hospitalist. Will check an EKG stat. ? Etiology to her nausea Subjective Date/time seen: 08/11/20 09:37 Interval history: 72-year-old female with history of non-Hodgkin lymphoma over 20 years ago, hypothyroidism, and hypertriglyceridemia who presented to the emergency department earlier today via private vehicle from home for evaluation of shortness of breath. Date of service 08/11/2020: She feels worse today. More vomiting this morning. No chest pain. Had significant cough last night but no shortness of breath Review of Systems Review of Systems: All systems reviewed & are unremarkable except as noted in HPI and below Constitutional: Constitutional: Denies fatigue, Denies headache(s) and Reports weakness Eyes: Eyes: Denies blurry vision ENT: Reports Normal hearing present, Denies headache(s), Denies lip swelling and Denies neck pain Cardiovascular: Cardiovascular: Reports chest pain, Reports dyspnea and Reports dyspnea on exertion Respiratory: Respiratory: Reports dyspnea and Reports dyspnea on exertion Gastrointestinal: Gastrointestinal: Denies abdominal pain, Reports nausea and Reports vomiting Genitourinary: Genitourinary: Denies hematuria and Denies flank pain Musculoskeletal: Musculoskeletal: Denies back pain, Denies neck pain and Denies numbness Integumentary/Breasts: Skin/Breast: Denies dry skin and Denies unusual bruising Neurologic: Reports Normal hearing present, Denies confusion, Denies headache(s), Denies numbness and Reports weakness Psychiatric: Psychiatric: Denies anxiety and Denies confusion Endocrine: Endocrine: Denies fatigue Hematologic/Lymphatic: Hematologic/Lymphatic: Denies easy bleeding and Denies easy bruising Allergic/Immunologic: Allergic/Immunologic: Denies GI upset with certain foods and Denies lip swelling Exam Narrative: Exam Narrative: Awake alert oriented appears to be in no acute distress and at stated age Const: General: comfortable and no acute distress; No confusion Orientation/consciousness: No confusion HENMT: General nose exam: Normal nares present Eyes: Sclera: sclerae normal Neck: Neck: supple and no JVD Chest: Other: No reproducible chest wall pain to palpation Resp: Auscultation: diminished lung sounds Cardio: Rate: regular rate Rhythm: regular rhythm Heart sounds: no murmurs GI: Inspection: normal to inspection Skin: General skin exam: normal color and no erythema Neuro: General: No confusion Cranial nerves: Yes Normal hearing present Cognition (Neuro): normal cognition Speech: normal speech Extrem: General: normal to inspection and no edema Psych: Mental Status: mental sta
[2020-08-11] MEDS: PARoxetine 10 MG TABLET PO (09:57)
[2020-08-11] MEDS: DONEPEZIL HCL 5 MG TABLET PO (09:57)
[2020-08-11] MEDS: MULTIVIT/MIN/PREN/FOL AC/IRON TABLET 1 TAB PO (09:57)
[2020-08-11] MEDS: FUROSEMIDE 40 MG TABLET PO (09:57)
[2020-08-11] MEDS: PANTOPRAZOLE 40 MG TABLET PO (09:57)
--- NOTE | 2020-08-11 10:49 | PM.IMPN ---
Progress Note: A&P Assessment and Plan (1) Cardiomegaly: Code(s): I51.7 - Cardiomegaly Status: Acute Assessment and Plan: Pt treated for congestive heart failure including cardiomegaly, small pleural effusions, and pulmonary edema. Ongoing pulmonary edema continue to diuresis. Transition to oral lasix (2) Pulmonary edema: Code(s): J81.1 - Chronic pulmonary edema Status: Acute Assessment and Plan: Patient is symptomatic with pulmonary edema resolving (3) Elevated serum creatinine: Code(s): R79.89 - Other specified abnormal findings of blood chemistry Status: Acute Assessment and Plan: Creat is 1.4 continue to watch (4) Hypothyroidism: Code(s): E03.9 - Hypothyroidism, unspecified Status: Inactive Assessment and Plan: Increase levothyroxine, TSH is 13 (5) Hypertriglyceridemia: Code(s): E78.1 - Pure hyperglyceridemia Status: Inactive Assessment and Plan: Continue gemfibrozil. (6) Memory loss: Code(s): R41.3 - Other amnesia Status: Inactive Assessment and Plan: Patient suffers from short-term memory loss. Continue donepezil. (7) Bronchitis: Code(s): J40 - Bronchitis, not specified as acute or chronic Status: Acute Assessment and Plan: Pt to continue on breathing treatments while in the hospital. wean off (8) Nausea & vomiting: Code(s): R11.2 - Nausea with vomiting, unspecified Status: Acute Assessment and Plan: Ordered KUB which showed NL bowel pattern, will order CT scan and lfts. continue nausea and gerd medications Subjective Date/time seen: 08/11/20 10:49 Interval history: 72-year-old female with history of non-Hodgkin lymphoma over 20 years ago, hypothyroidism, and hypertriglyceridemia who presented to the emergency department earlier today via private vehicle from home for evaluation of shortness of breath. Pt treated for CHF exacerbation. Echo shows EF of 35%, heart cath recommended later. Pt having dry heaving this morning vomited her breakfast, kub is nl, will order lfts and ct abdomen Review of Systems Review of Systems: All systems reviewed & are unremarkable except as noted in HPI and below Exam Const: General: anxious Nutritional Appearance: overweight Orientation/consciousness: oriented to person HENMT: Head: normal to inspection Resp: Effort & Inspection: no respiratory distress Auscultation: other (few crackles at bases) Cardio: Rate: regular rate Rhythm: regular rhythm GI: Inspection: normal to inspection Auscultation: normal bowel sounds Neuro: General: oriented to person Objective Data Vital Signs Vital Signs: Vital Signs - 24 hr 08/10/20 12:00 08/10/20 12:47 08/10/20 14:00 Temperature 36.9 C Pulse Rate 73 75 84 Respiratory Rate 20 Blood Pressure 103/74 Pulse Oximetry 97 08/10/20 16:00 08/10/20 20:00 08/10/20 21:38 Temperature 36.7 C Pulse Rate 72 67 80 Respiratory Rate 20 Blood Pressure 114/92 H Pulse Oximetry 95 08/11/20 00:00 08/11/20 04:00 08/11/20 05:52 Temperature 36.8 C Pulse Rate 72 71 72 Respiratory Rate 18 Blood Pressure 122/49 L Pulse Oximetry 98 08/11/20 09:08 Temperature Pulse Rate 88 Respiratory Rate Blood Pressure Pulse Oximetry Intake/Output Intake/Output: Intake & Output 08/08/20 08/09/20 08/10/20 08/11/20 23:59 23:59 23:59 23:59 Intake Total 1570 1350 1630 1120 Output Total 3000 2550 950 Balance -1430 -0056 298 8406 Meds/Results Medications: Active Medications Generic Name Dose Route Start Last Admin Trade Name Freq PRN Reason Stop Dose Admin Acetaminophen 650 mg 08/07/20 14:26 Acetaminophen 325 Mg Tablet PO Q4H PRN Mild Pain (1-3) or Fever Benzonatate 100 mg 08/09/20 09:00 08/11/20 08:00 Benzonatate 100 Mg Capsule PO 100 mg TID FAVIOLA Administration Donepezil HCl 5 mg
[2020-08-11 11:24] LABS: Alanine Aminotransferase 18 U/L (4-35); Alkaline Phosphatase 92 U/L (38-126); Aspartate Amino Transferase 37 U/L (14-36); Bilirubin,Total 0.6 mg/dL (0.2-1.3)
[2020-08-11] MEDS: POTASSIUM CHLORIDE 20 MEQ TABLET 40 MEQ PO (12:59)
--- NOTE | 2020-08-11 13:49 | PCOTNOTE ---
Attempted to see patient this pm, however upon entering room, patient and family member at bedside both sleeping soundly. Did not disturb for this reason.
[2020-08-12] VITALS (7 sets, daily range): BP systolic 104–113; BP diastolic 58–70; PULSE 64–77; RESP 16–20; TEMP 36.6–36.8; O2SAT 97–100
[2020-08-12] MEDS: LEVOTHYROXINE SODIUM 50 MCG TABLET PO (05:31)
[2020-08-12 06:36] LABS: Anion Gap 6 mmol/L (8-16); Blood Urea Nitrogen 42 mg/dL (7-17); Calcium 9.4 mg/dL (8.4-10.2); Carbon Dioxide 29 mmol/L (22-30); Chloride 101 mmol/L (98-107); Estimated CRCL calculation 29 ml/min; Estimated Glomerular Filt Rate 36; Glucose 102 mg/dL (65-105); Potassium 4.7 mmol/L (3.4-5.0); Sodium 136 mmol/L (137-145)
[2020-08-12] MEDS: PARoxetine 10 MG TABLET PO (09:00)
[2020-08-12] MEDS: DONEPEZIL HCL 5 MG TABLET PO (09:00)
[2020-08-12] MEDS: gemfibroziL 600 MG TABLET PO (09:00)
[2020-08-12] MEDS: PANTOPRAZOLE 40 MG TABLET PO (09:00)
[2020-08-12] MEDS: MULTIVIT/MIN/PREN/FOL AC/IRON TABLET 1 TAB PO (09:00)
[2020-08-12] MEDS: FUROSEMIDE 40 MG TABLET PO (09:00)
[2020-08-12] MEDS: METOPROLOL SUCCINATE EXT REL 12.5 MG TABCR PO (09:00)
[2020-08-12] MEDS: SACUBITRIL/VALSARTAN 12-13 MG TABLET 1 TAB PO (09:00)
[2020-08-12] MEDS: BENZONATATE 100 MG CAPSULE PO ×2 (09:00→13:05)
[2020-08-12] MEDS: POTASSIUM CHLORIDE 20 MEQ TABLET.ER PO (09:00)
[2020-08-12] MEDS: ENOXAPARIN 40 MG/0.4 ML SYRINGE SUB-Q (09:01)
--- NOTE | 2020-08-12 15:07 | PM.DS ---
DS: Admitting Diagnosis Admitting Diagnosis Admitting Diagnosis: Shortness of breath DS: Discharge Diagnosis Discharge Diagnosis (1) Cardiomegaly: Code(s): I51.7 - Cardiomegaly Status: Acute Assessment and Plan: Pt treated for congestive heart failure, cxr showing cardiomegaly, small pleural effusions, and pulmonary edema. Pt was treated with iv lasix. Transition to oral lasix. Seen by cardiology, heart cath advised, later when patient is more stable. (2) Pulmonary edema: Code(s): J81.1 - Chronic pulmonary edema Status: Resolved Assessment and Plan: Patient is symptomatic with pulmonary edema resolved on discharge. Pt to have heart cath at a later date with [facility]. (3) Elevated serum creatinine: Code(s): R79.89 - Other specified abnormal findings of blood chemistry Status: Acute Assessment and Plan: Creat is 1.4 continue to watch transitioned to oral lasix (4) Hypothyroidism: Code(s): E03.9 - Hypothyroidism, unspecified Status: Inactive Assessment and Plan: Increase levothyroxine, TSH is 13 (5) Hypertriglyceridemia: Code(s): E78.1 - Pure hyperglyceridemia Status: Inactive Assessment and Plan: Continue gemfibrozil. (6) Memory loss: Code(s): R41.3 - Other amnesia Status: Inactive Assessment and Plan: Patient suffers from short-term memory loss. Continue donepezil. (7) Bronchitis: Code(s): J40 - Bronchitis, not specified as acute or chronic Status: Acute Assessment and Plan: Pt to continue on breathing treatments while in the hospital. wean off (8) Nausea & vomiting: Code(s): R11.2 - Nausea with vomiting, unspecified Status: Acute Assessment and Plan: Pt having alot of nausea and vomiting bile. KUB which showed NL bowel pattern, CT NAD, LFTsNL. Nausea secondary to lasix? unsure cause. DS: Summary Hospital Course Hospital Course: 72-year-old female with history of non-Hodgkin lymphoma over 20 years ago, hypothyroidism, and hypertriglyceridemia who presented to the emergency department earlier today via private vehicle from home for evaluation of shortness of breath. Pt treated for CHF exacerbation. Unfortunately ,Echo shows EF of 35%, heart cath recommended later as outpatient, once she feels better. Pt was having alot of bile and food vomiting, her kub is nl, her lfts and her ct abdomen and pelvis showed small hiatal hernia only. Time Spent with Patient Time attestation: Total time spent providing and/or coordinating discharge services:40 minutes on day of dischrage Exam Const: General: anxious Nutritional Appearance: overweight Orientation/consciousness: oriented to person Resp: Effort & Inspection: no respiratory distress Auscultation: other (few crackles at bases) Cardio: Rate: regular rate Rhythm: regular rhythm GI: Inspection: normal to inspection Auscultation: normal bowel sounds Neuro: General: oriented to person DS: Data Data Completed and Pending Labs on day of discharge: Labs from last 24 hours 08/12/20 06:06 Sodium 136 L Potassium 4.7 Chloride 101 Carbon Dioxide 29 Anion Gap 6 L BUN 42 H Creatinine 1.40 H Estim Creat Clear Calc 29 Estimated GFR 36 L Glucose 102 Calcium 9.4 Discharge Plan Discharge Attending physician on discharge: Jacquelyn Whaley Consulting providers: Adria Malik Discharging Clinician: Jacquelyn Whaley Anticipated Discharge Date/Time: 08/12/20 15:01 Patient Disposition: Home, Self-Care Activity: as tolerated Diet: heart healthy Discharge Instructions: Pt must go for heart catheterization Pt will follow with [facility] Low salt diet Pt needs TSH/ T4 checked in 3 months time Patient Instructions: Antibiotic Form, Metoprolol (By mouth), Sacubitril/Valsartan (By mouth), Heart Failure (GEN), Heart Catheter
--- NOTE | 2020-08-12 15:20 | PM.PNCARD ---
Progress Note: A&P Additional Plan 80-year-old lady presenting with congestive heart failure this is a new diagnosis for her without any cardiac problems in the past. Echocardiogram demonstrated moderately reduced left ventricular systolic dysfunction. With standard medical therapy she has done well and is now fairly well compensated. It is fine with me to discharge her today. She will follow up obviously with a continuity tester of her choice( Dr Shi) in [place] and as such does not require per meter arrange follow-up with Dr. Malik in our office. Shahzad Palm MD [facility] Subjective Date/time seen: Date of service: 08/12/20 15:20 Interval history: Follow-up visit in this 80-year-old lady with: Decompensated congestive heart failure with left ventricular systolic dysfunction which is new diagnosis for this lady. She has been started on standard medical therapy and has done well is in a state of good compensation at this time and appears to be a good candidate for discharge. Patient has chosen to follow up with another cardiology group with a Dr. Shi in [place]. Exam Const: General: comfortable and no acute distress HENMT: Mouth: Yes moist mucous membranes Eyes: Sclera: sclerae normal Pupils: Equal, round and reactive pupils present Neck: Neck: supple and no JVD Resp: Effort & Inspection: normal respiratory effort Auscultation: clear to auscultation bilaterally Other: No rales no rhonchi no wheezing Cardio: Rate: regular rate Rhythm: regular rhythm GI: GI Palp: Yes Soft to palpation Auscultation: normal bowel sounds Neuro: Cognition (Neuro): normal cognition Extrem: General: normal to inspection Objective Data Vital Signs Vital Signs: Vital Signs - 24 hr 08/11/20 16:00 08/11/20 16:45 08/11/20 20:00 Temperature 37.1 C Pulse Rate 88 76 Respiratory Rate Blood Pressure Pulse Oximetry 08/11/20 22:00 08/12/20 00:00 08/12/20 04:00 Temperature 37.1 C Pulse Rate 73 77 77 Respiratory Rate 16 Blood Pressure 115/60 Pulse Oximetry 92 08/12/20 06:00 08/12/20 08:00 08/12/20 09:00 Temperature 36.8 C Pulse Rate 71 64 72 Respiratory Rate 20 Blood Pressure 113/70 Pulse Oximetry 97 08/12/20 12:00 08/12/20 14:00 Temperature 36.6 C Pulse Rate 76 73 Respiratory Rate 16 Blood Pressure 104/58 L Pulse Oximetry 100 Intake/Output Intake/Output: Intake & Output 08/09/20 08/10/20 08/11/20 08/12/20 23:59 23:59 23:59 23:59 Intake Total 1350 1630 1620 510 Output Total 2550 950 500 Balance -2792 047 3103 10 Meds/Results Medications: Active Medications Generic Name Dose Route Start Last Admin Trade Name Freq PRN Reason Stop Dose Admin Acetaminophen 650 mg 08/07/20 14:26 Acetaminophen 325 Mg Tablet PO Q4H PRN Mild Pain (1-3) or Fever Benzonatate 100 mg 08/09/20 09:00 08/12/20 13:05 Benzonatate 100 Mg Capsule PO 100 mg TID FAVIOLA Administration Donepezil HCl 5 mg 08/08/20 12:55 08/12/20 09:00 Donepezil Hcl 5 Mg Tablet PO 5 mg DAILY FAVIOLA Administration Enoxaparin Sodium 40 mg 08/08/20 09:00 08/12/20 09:01 Enoxaparin 40 Mg/0.4 Ml Syringe SUB-Q 40 mg DAILY FAVIOLA Administration Furosemide 40 mg 08/11/20 09:00 08/12/20 09:00 Furosemide 40 Mg Tablet PO 40 mg DAILY FAVIOLA Administration Gemfibrozil 600 mg 08/08/20 08:00 08/12/20 09:00 Gemfibrozil 600 Mg Tablet PO 600 mg DAILY@0800 FAVIOLA Administration Guaifenesin/Dextromethorphan 5 ml 08/09/20 04:22 08/11/20 13:01 Guaifenesin/Dextromethorphan 10 Ml Udc PO 5 ml Q4H PRN Administration Cough Levalbuterol HCl 0.63 mg 08/10/20 11:09 Levalbuterol Neb 1.25 Mg/3 Ml INHALATION Q6HRT PRN Shortness Of Breath Levothyroxine Sodium 50 mcg 08/08/20 06:30 08/12/20 05:31 Levothyroxine Sodium 50 Mcg Tablet PO 50 mcg DAILY@0630 FAVIOLA Administration Meclizine HCl 25 mg 08/07/20 22:27 08/11/20 07:59 Meclizine
== END 2020-08-12 16:10 | disposition home or self-care (01) | DRG 293 ==
LOC: ANHED 14:26 → ANH3MEDSUR 15:50
PROVIDERS: Internal Medicine Cardiovascular Disease; Physician Assistant; Admitting Provider Hospitalist; Emergency Provider Emergency Medicine; PCP Internal Medicine; Visit Provider Family Medicine
DX: I50.21 Acute systolic (congestive) heart failure (principal); I51.7 Cardiomegaly; E03.9 Hypothyroidism, unspecified; E78.1 Pure hyperglyceridemia; R41.3 Other amnesia; M85.80 Other specified disorders of bone density and structure, unspecified site; F41.8 Other specified anxiety disorders; M17.11 Unilateral primary osteoarthritis, right knee; J40 Bronchitis, not specified as acute or chronic; Z96.642 Presence of left artificial hip joint; M21.371 Foot drop, right foot; Z85.72 Personal history of non-Hodgkin lymphomas; Z90.49 Acquired absence of other specified parts of digestive tract; Z98.42 Cataract extraction status, left eye; Z98.41 Cataract extraction status, right eye
CPT/HCPCS: 36415; 71045; 71046; 74018; 74177; 80048; 80053; 80061; 80076; 83735; 83880; 84439; 84443; 84480; 84484; 85025; 85027; 93005; 94640; 96372; 96374; 96376; 97110; 97116; 97161; 97165; 97535; 99285; A9270; C8929; G0378; J1650; J1940; J3475; J7120; Q9957; Q9967

== ENCOUNTER → 2021-02-06 12:15 | Outpatient (CLI) | payer MEDICARE, SELFPAY ==
--- NOTE | ~2021-02-06 | CT_ITS ---
EXAMINATION: CT soft tissue neck w con DATE: 02/06/2021 13:16 INDICATION: Left neck mass. TECHNIQUE: Computed tomography (CT) of the neck was performed with 75 mL Omnipaque-350 intravenous co ntrast. Automated exposure control and iterative reconstruction technique were employed. The dose-myrtle gth product was 381.54 mGy-cm. COMPARISON: Chest single view 08/11/2020 FINDINGS: Again seen is scarring at the lung apices, left worse than right. There are likely changes of ocular lens replacement surgeries. 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 There are calcified mediastinal lymph nodes, which may be old granulomatous disease or scarring from old treat ed lymphoma. There is plaque in the proximal internal carotid arteries with less than 50% stenosis re lative to normal distal artery lumen diameters. There is mild mucosal thickening in the paranasal sin uses. There is severe cervical spondylosis. IMPRESSION: 1. No abnormal neck mass. Reviewed, dictated and finalized at location A. IMPRESSION: 1. No abnormal neck mass.
[2021-02-06 13:02] LABS: Estimated Glomerular Filt Rate 36
== END ==
PROVIDERS: PCP Internal Medicine; Visit Provider Otolaryngology
DX: R22.1 Localized swelling, mass and lump, neck (principal)
CPT/HCPCS: 70491; Q9967